=== PATIENT | male | born 1980 ===

== ENCOUNTER 2022-11-24 10:12 | Emergency (ER) | payer OTHER, BC ==
[2022-11-24] MEDS: Acetaminophen/HYDROcodone 325-10 MG Tab PO ONE (10:37)
[2022-11-24] MEDS: HYDROmorphone 1 MG/ML Syringe IM ONE (11:19)
[2022-11-24] MEDS: diphenhydrAMINE 50 MG/ML SDV IM ONE (11:19)
== END 2022-11-24 12:30 | disposition home or self-care (01) ==
LOC: DL.ED 10:12
DX: S52.301A Unspecified fracture of shaft of right radius, initial encounter for closed fracture (principal); S52.201A Unspecified fracture of shaft of right ulna, initial encounter for closed fracture; E66.9 Obesity, unspecified; Z68.34 Body mass index [BMI] 34.0-34.9, adult; W31.89XA Contact with other specified machinery, initial encounter; Y92.89 Other specified places as the place of occurrence of the external cause; Y99.0 Civilian activity done for income or pay
CPT/HCPCS: 25605; 29105; 73090-RT; 96372; 99283; 99283-25; A9270-GY; J1170; J1200